=== PATIENT | male | born 1980 | race African-American/Black ===

== ENCOUNTER 2020-07-05 11:46 | Emergency (ER) | payer OTHER, SELFPAY ==
[2020-07-05] VITALS (17 sets, daily range): BP systolic 144–168; BP diastolic 76–102; PULSE 51–75; RESP 15–18; TEMP 35.9; O2SAT 98–100
--- NOTE | ~2020-07-05 | CT_ITS ---
EXAMINATION: CT brain wo con DATE: 07/05/2020 12:01 INDICATION: Headache. TECHNIQUE: Computed tomography (CT) of the head was performed without intravenous contrast. The mA wa s adjusted according to patient size. Iterative reconstruction technique was employed. The dose-lengt h product was 605.33 mGy-cm. COMPARISON: None FINDINGS: There is no intracranial hemorrhage, acute infarction, or abnormal intracranial mass lesion . The ventricles are normal in size. There is mild mucosal thickening in the paranasal sinuses. The m astoid air cells are normal. IMPRESSION: 1. Normal brain. Reviewed, dictated and finalized at location A. IMPRESSION: 1. Normal brain.
[2020-07-05 12:39] LABS: Basophils Absolute Auto 0.1 K/mm3 (0.0-0.1); Basophils Percent Auto 0.7 % (0.2-1.2); Eosinophils Absolute Auto 0.3 K/mm3 (0-0.3); Eosinophils Percent Auto 1.9 % (0-4.4); Hematocrit 41.5 % (42.0-52.0); Hemoglobin 13.6 g/dL (14.0-18.0); Immature Granulocyte Absolute 0.06 K/mm3 (0.00-0.031); Immature Granulocyte Percent A 0.4 % (0-0.5); Lymphocytes Absolute Auto 2.37 K/mm3 (0.9-3.2); Lymphocytes Percent Auto 17.4 % (18.3-44.2); Mean Corpuscular HGB Conc 32.8 g/dl (32-36); Mean Corpuscular Hemoglobin 28.3 pg (26-34); Mean Corpuscular Volume 86.5 fl (80-100); Mean Platelet Volume 11.1 fl (7.4-10.4); Monocytes Absolute Auto 1.4 K/mm3 (0.1-0.6); Neutrophils Absolute Auto 9.5 K/mm3 (1.3-6.7); Neutrophils Percent Auto 69.6 % (45.5-73.1); Platelet Count Result 301 k/mm3 (150-375); Red Cell Distribution Width 13.3 % (11.5-14.5); White Blood Count 13.6 K/mm3 (4.5-10.0)
--- NOTE | 2020-07-05 12:41 | ED.HA ---
HPI - Headache General Chief Complaint: Headache Stated Complaint: headhache Time Seen by Provider: 07/05/20 12:28 Source: patient History of Present Illness HPI Narrative: Patient is a 40 y/o male complaining of left sided headache that started approximately 2 hours ago. He rates his pain as 10/10 and describes it as a pressure. His pain was sudden onset. He took Tylenol and Imitrex, which did not help. He has history of migraine, but describes this headache as the worst headache he ever had. He has some nausea, but no vomiting. He denies any focal weakness or numbness. Related Data Home Medications Medication Instructions Recorded Confirmed sumatriptan succinate [Imitrex] mg PO 07/05/20 Allergies Allergy/AdvReac Type Severity Reaction Status Date / Time No Known Allergies Allergy Verified 07/05/20 11:52 Review of Systems Constitutional: Constitutional: Denies chills, Denies fever(s), Reports headache(s) and Denies weakness Eyes: Eyes: Denies blurry vision ENT: Reports headache(s) and Denies neck pain Cardiovascular: Cardiovascular: Denies chest pain and Denies dyspnea Respiratory: Respiratory: Denies cough and Denies dyspnea Gastrointestinal: Gastrointestinal: Denies abdominal pain, Denies diarrhea, Reports nausea and Denies vomiting Genitourinary: Genitourinary: Denies hematuria and Denies dysuria Musculoskeletal: Musculoskeletal: Denies back pain and Denies neck pain Neurologic: Reports headache(s) and Denies weakness Exam Const: General: no acute distress and well developed Orientation/consciousness: oriented to person, oriented to place, oriented to time and patient oriented x3 HENMT: Head: normocephalic Ears: external ears normal General nose exam: Normal external nose present Eyes: General: appearance normal, both eyes and all related structures Conjunctivae: conjunctivae normal Neck: Neck: normal visual inspection and full ROM Chest: Chest palpation & inspection: normal inspection of the chest and no tenderness Resp: Effort & Inspection: normal respiratory effort Auscultation: clear to auscultation bilaterally Cardio: Rate: bradycardic Rhythm: regular rhythm GI: GI Palp: No abdominal tenderness and Yes Soft to palpation Skin: General skin exam: normal color and turgor normal Neuro: General: oriented to person, oriented to place, oriented to time and patient oriented x3 Cranial nerves: Yes CN's II-XII intact bilaterally Cognition (Neuro): normal cognition Speech: normal speech Motor exam (neuro): 5/5 motor strength present throughout Sensory Exam: normal sensation Coordination: [id number] test normal and [id number] test normal Extrem: General: normal to inspection, full ROM and no pedal edema Psych: Appearance: grossly normal Mental Status: mental status grossly normal Affect: normal affect Course Reevaluation(s) Reevaluation #1: Rechecked. Patient feels better. Headache almost gone. Discussed with patient about LP to evaluate for other potential causes of headache. Offered patient LP. Patient declined to have LP. He is instructed to return if his symptoms worse. Date: 07/05/20 Time: 14:50 Vital Signs Vital signs: Vital Signs Temperature 35.9 C L 07/05/20 11:48 Pulse Rate 52 L 07/05/20 11:48 Respiratory Rate 18 07/05/20 11:48 Blood Pressure 153/98 H 07/05/20 11:48 Pulse Oximetry 100 07/05/20 11:48 Temperature 35.9 C L 07/05/20 11:48 Pulse Rate 75 07/05/20 15:15 Respiratory Rate 16 07/05/20 15:15 Blood Pressure 155/86 H 07/05/20 15:15 Pulse Oximetry 100 07/05/20 15:15 MDM - Headache Lab Data Result diagrams: 07/05/20 12:31 07/05/20 12:31 Labs: Lab Results 07/05/20 07/05/20 Range/Units 12:31 12:31 WBC 13.6 H (4.5-10.0) K/mm3 RBC 4.80 (4.6-6.20) M/mm3 Hgb 13.6 L (14.0-18.0) g/dL Hct 41.5 L (42.0-52.0) % MCV 86.5 (80-100) fl MCH 28.3 (26-34) pg MCHC 32.8 (32-36)
[2020-07-05] MEDS: METOCLOPRAMIDE HCL INJ 10 MG/2 ML VIAL IV PUSH (12:43)
[2020-07-05] MEDS: fentaNYL CITRATE INJ (*CRX) 100 MCG/2 ML VIAL 50 MCG IV PUSH (12:43)
[2020-07-05] MEDS: SODIUM CHLORIDE 0.9% IV 1,000 ML 999 ML IV CONT (12:43)
[2020-07-05] MEDS: diphenhydrAMINE HCl INJ 50 MG/ML VIAL IV PUSH (12:47)
[2020-07-05 12:51] LABS: Anion Gap 11 mmol/L (8-16); Blood Urea Nitrogen 13 mg/dL (9-20); Calcium 9.8 mg/dL (8.4-10.2); Carbon Dioxide 26 mmol/L (22-30); Chloride 105 mmol/L (98-107); Estimated CRCL calculation 106 ml/min; Estimated Glomerular Filt Rate > 60; Glucose 83 mg/dL (75-110); Potassium 3.8 mmol/L (3.4-5.0); Sodium 142 mmol/L (137-145)
[2020-07-05] MEDS: hydroCHLOROthiazide 25 MG TABLET PO (13:48)
[2020-07-05] MEDS: lisinopriL 20 MG TABLET PO (13:48)
[2020-07-05] MEDS: VALPROIC ACID INJ 500 MG in DEXTROSE 5% 100 ML 100 MG IVPB (13:58)
== END 2020-07-05 15:15 | disposition home or self-care (01) ==
PROVIDERS: Emergency Provider Emergency Medicine
DX: G43.909 Migraine, unspecified, not intractable, without status migrainosus (principal)
CPT/HCPCS: 36415; 70450; 80048; 85025; 96361; 96365; 96375; 99284; A9270; J1200; J2765; J3010; J7030

== ENCOUNTER 2021-01-01 12:17 | Emergency (ER) | payer OTHER, SELFPAY ==
[2021-01-01 12:33] VITALS: BP 125/74; PULSE 71; RESP 20; TEMP 36.8; O2SAT 99
--- NOTE | 2021-01-01 13:44 | ED.GENADULT ---
HPI - General Adult General Chief complaint: Back Pain/Injury Stated complaint: back pain Time Seen by Provider: 01/01/21 12:47 Source: patient Mode of arrival: ambulatory Limitations: no limitations History of Present Illness HPI narrative: Patient is a 40-year-old male who presents to emergency department for evaluation of low back pain that is been present since moving has been lifting lots of objects and now has increasing low back pain localized to the midline low back radiating down to the thighs patient denies similar occurrence in the past or other injury or trauma took 2 ibuprofen with minimal improvement Related Data Allergies Allergy/AdvReac Type Severity Reaction Status Date / Time No Known Allergies Allergy Verified 01/01/21 12:35 Review of Systems Review of Systems: All systems reviewed & are unremarkable except as noted in HPI and below PMFSH Social History Social History Gender identity (if verbalized by the patient): Male Exam Narrative: Exam Narrative: GENERAL: Well-appearing, well-nourished, and in no acute distress. HEAD: Normocephalic, atraumatic. EYES: PERRLA and EOMI. ENT: Nares clear, no rhinorrhea or epistaxis. Mucous membranes moist. CHEST: Clear to auscultation. No respiratory distress. No wheezes rales or rhonchi HEART: Regular rate and rhythm. No murmur heard. Normal peripheral pulses. ABDOMEN: Soft, nontender, nondistended EXTREMITIES: Normal range of motion. No edema. Tenderness across the lower lumbar region no deformities noted SKIN: Warm, dry, no rash. NEURO: No focal deficits. Alert and oriented x3. Cranial nerves II through XII grossly intact. Normal speech and gait PSYCH: Normal mood and affect. Course Course Emergency Course: Patient in the room no distress aware of case findings treatment plan and diagnosis agreeing to follow-up as instructed Vital Signs Vital signs: Vital Signs Temperature 98.2 F 01/01/21 12:33 Pulse Rate 71 01/01/21 12:33 Respiratory Rate 20 01/01/21 12:33 Blood Pressure 125/74 01/01/21 12:33 Pulse Oximetry 99 01/01/21 12:33 Temperature 98.2 F 01/01/21 12:33 Pulse Rate 71 01/01/21 12:33 Respiratory Rate 20 01/01/21 12:33 Blood Pressure 125/74 01/01/21 12:33 Pulse Oximetry 99 01/01/21 12:33 Medical Decision Making MDM Narrative Medical decision making narrative: Patients pain is positional in nature and localized to back without signs of cord compression or cauda equina based on neurological exam, skeletal exam and history. No fever or other significant factors to suggest osteomyelitis or spinal epidural abscess. No symptoms or signs to suggest pain is referred from abdominal or / cardiopulmonary sources. No pulsatile masses noted on exam. Patient ambulates with steady gait and is stable for outpatient management given case findings. Vital Signs Vital Signs: Vital Signs Temperature 98.2 F 01/01/21 12:33 Pulse Rate 71 01/01/21 12:33 Respiratory Rate 20 01/01/21 12:33 Blood Pressure 125/74 01/01/21 12:33 Pulse Oximetry 99 01/01/21 12:33 Temperature 98.2 F 01/01/21 12:33 Pulse Rate 71 01/01/21 12:33 Respiratory Rate 20 01/01/21 12:33 Blood Pressure 125/74 01/01/21 12:33 Pulse Oximetry 99 01/01/21 12:33 Discharge Plan Discharge Clinical Impression: Lumbar radiculopathy Patient Disposition: Home, Self-Care Condition: Stable Instructions: Antibiotic Form, Acute Low Back Pain (ED) Additional Instructions: Medications as needed and prescribed. Limit lifting and bending. You may apply heat or cold to the area as needed. Follow up with your doctor for further care in the next 7 days. Contact your doctor or return to the emergency department if you develop problems with bladder or bowel function, weakness or loss of feeling in one or both of your legs, or any other serious concerns. Prescriptions:
== END 2021-01-01 13:56 | disposition home or self-care (01) ==
PROVIDERS: Emergency Provider Emergency Medicine
DX: M54.16 Radiculopathy, lumbar region (principal)
CPT/HCPCS: 99283

== ENCOUNTER 2021-03-28 07:09 | Emergency (ER) | payer OTHER, SELFPAY ==
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
[2021-03-28 07:15] VITALS: BP 183/102; PULSE 98; RESP 18; TEMP 36.7; O2SAT 100
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
[2021-03-28] MEDS: KETOROLAC 30 MG/ML VIAL (*BKC) IM (07:35)
[2021-03-28 08:34] VITALS: BP 151/96; PULSE 87; RESP 18; O2SAT 99
== END 2021-03-28 08:35 | disposition home or self-care (01) ==
PROVIDERS: Emergency Provider Emergency Medicine
DX: S46.912A Strain of unspecified muscle, fascia and tendon at shoulder and upper arm level, left arm, initial encounter (principal)
CPT/HCPCS: 73030; 96372; 99284; J1100; J1885

== ENCOUNTER 2021-10-17 10:35 | Emergency (ER) | payer OTHER, SELFPAY ==
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
[2021-10-17 10:45] VITALS: BP 146/95; PULSE 88; RESP 16; TEMP 36.2; O2SAT 100
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
== END 2021-10-17 11:53 | disposition home or self-care (01) ==
PROVIDERS: Emergency Provider Emergency Medicine
DX: S46.912A Strain of unspecified muscle, fascia and tendon at shoulder and upper arm level, left arm, initial encounter (principal); V49.60XA Unspecified car occupant injured in collision with unspecified motor vehicles in traffic accident, initial encounter
CPT/HCPCS: 73030; 99283

== ENCOUNTER 2021-11-10 04:50 | Emergency (ER) | payer OTHER, SELFPAY ==
--- NOTE | ~2021-11-10 | CT_ITS ---
EXAMINATION: CTA brain carotid DATE: 11/10/2021 06:44 INDICATION: Headache TECHNIQUE: Computed tomographic angiography (CTA) of the head was performed without and with 100 mL O mnipaque-350 intravenous contrast. CTA of the neck was performed with intravenous contrast. The dose- length product was 1943.36 mGy-cm. Maximum intensity projection and volume rendered 3D-reconstruction s were created by the technologist on a separate workstation. Automated exposure control and iterativ e reconstruction technique were employed. COMPARISON: 07/05/2020 FINDINGS: HEAD CTA: There is no intracranial hemorrhage, acute infarction, or abnormal mass lesion. The ventric les are normal. There is no abnormal mass effect or midline shift. The florian-white matter differentiat ion is normal. The basal cisterns are patent. The orbits are normal. There is partial opacification o f the left maxillary sinus and ethmoidal air cells.. There is no significant stenosis of the basilar artery or posterior cerebral arteries. There is no si gnificant stenosis of the intracranial internal carotid arteries or the anterior or middle cerebral a rteries. The anterior communicating artery and posterior communicating arteries are normal. There is no aneurysm. NECK CTA: The thyroid gland is unremarkable. The submandibular and parotid glands are symmetric. Ther e is no lymphadenopathy. There are no masses identified. The airway is unremarkable. There is mild ce rvical spondylosis at C5-6.. The superior mediastinum is unremarkable. There is 0% stenosis of the proximal right internal carotid artery relative to normal distal artery l umen diameter (NASCET criteria). There is 0% stenosis of the proximal left internal carotid artery re lative to normal distal artery lumen diameter. IMPRESSION: 1. No acute intracranial abnormality. Normal head CTA. 2. 0% stenosis of the proximal right internal carotid artery relative to normal distal artery lumen d iameter (NASCET criteria). 3. 0% stenosis of the proximal left internal carotid artery relative to normal distal artery lumen di ameter. Reviewed, dictated and finalized at location A. CE SUPPORT IMPRESSION: 1. No acute intracranial abnormality. Normal head CTA. 2. 0% stenosis of the proximal right internal carotid artery relative to normal distal artery lumen diameter (NASCET criteria). 3. 0% stenosis of the proximal left internal carotid artery relative to normal distal artery lumen diameter.
--- NOTE | ~2021-11-10 | XR_ITS ---
EXAMINATION: XR lumbar spine 2-3V DATE: 11/10/2021 05:42 INDICATION: Low back pain TECHNIQUE: Anteroposterior and lateral views of the lumbar spine, and cone-down lateral view of the l umbosacral junction were obtained. COMPARISON: None. FINDINGS: There is grade 1 anterolisthesis of L5 on S1. The vertebral body heights are maintained. Mi ld loss of intervertebral disc space height is present at L5-S1. There is no fracture. Phleboliths ar e noted in the pelvis. IMPRESSION: 1. Grade 1 anterolisthesis of L5 on S1. Reviewed, dictated and finalized at location A. [facility]
[2021-11-10 04:55] VITALS: BP 148/94; PULSE 79; RESP 18; TEMP 36.6; O2SAT 100
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
[2021-11-10] MEDS: KETOROLAC 30 MG/ML VIAL (*BKC) IV PUSH (05:24)
[2021-11-10 07:13] VITALS: BP 137/89; PULSE 71; RESP 18; O2SAT 100
== END 2021-11-10 08:44 | disposition home or self-care (01) ==
PROVIDERS: Emergency Provider Emergency Medicine
DX: M54.42 Lumbago with sciatica, left side (principal); F07.81 Postconcussional syndrome; G44.309 Post-traumatic headache, unspecified, not intractable
CPT/HCPCS: 70496; 70498; 72100; 96374; 99284; J1885; Q9967

== ENCOUNTER 2022-02-21 17:21 | Emergency (ER) | payer OTHER, SELFPAY ==
--- NOTE | 2022-02-21 17:35 | ED.MALEGU ---
HPI - Male Genitourinary General Chief complaint: Urogenital-Male Stated complaint: uti Source: patient and RN notes reviewed Mode of arrival: ambulatory Limitations: no limitations History of Present Illness HPI Narrative: 41-year-old male presented for complaint of urinary frequency for about 2 days. He denies any penile discharge, dysuria, hematuria or change to urinary stream. He denies any concern for STD at this time. He endorses drinking a lot of soda and extra sweet tea. Denies nausea, vomiting, abdominal pain, fevers or chills. Related Data Allergies Allergy/AdvReac Type Severity Reaction Status Date / Time No Known Allergies Allergy Verified 02/21/22 17:34 Review of Systems Review of Systems: CONSTITUTIONAL: Denies body aches, fever, chills, or sweats. CARDIOVASCULAR: Denies chest pain, palpitations, or edema. RESPIRATORY: Denies cough or dyspnea. GASTROINTESTINAL: Denies abdominal pain, nausea, vomiting, or diarrhea. GENITOURINARY: Reports frequency, Denies urgency, hematuria, flank pain SKIN: Denies rash, itching, or wounds. MUSCULOSKELETAL: Denies back pain or myalgia. [facility] Past Medical History Medical History Brain cyst Migraines Social History Social History Gender identity (if verbalized by the patient): Male Comments At time of signature, I have reviewed and agree with nursing past medical, surgical, social and family history unless otherwise noted. Please see nursing chart for further information. There is no relevant family history pertinent to the presenting complaint Exam Narrative: GENERAL: Well-appearing CHEST: No respiratory distress. Clear to auscultation. HEART: Regular rate and rhythm. ABDOMEN: Soft, nontender, nondistended, normal active bowel sounds. No CVA tenderness MUSCULOSKELETAL: No bony tenderness. SKIN: Warm, dry, no rash. NEURO: No focal deficits. Alert and oriented x3. Gait steady. PSYCH: Normal affect. No signs of depression or anxiety. Course Course Emergency Course: Patient is aware of diagnosis, understands and agrees to treatment plan. Anticipatory guidance given. Patient agrees to follow-up as directed and is aware of reasons to seek care at the emergency department. Portions of this record may have been created with voice recognition software Level of Care: Express Care Visit Vital Signs Vital signs: Vital Signs Temperature 98.0 F 02/21/22 17:38 Pulse Rate 62 02/21/22 17:38 Respiratory Rate 16 02/21/22 17:38 Blood Pressure 146/92 H 02/21/22 17:38 Pulse Oximetry 100 02/21/22 17:38 Oxygen Delivery Room Air 02/21/22 17:38 Temperature 98.0 F 02/21/22 17:38 Pulse Rate 62 02/21/22 17:38 Respiratory Rate 16 02/21/22 17:38 Blood Pressure 146/92 H 02/21/22 17:38 Pulse Oximetry 100 02/21/22 17:38 Oxygen Delivery Room Air 02/21/22 17:38 Reviewed MDM - Male Genitourinary MDM Narrative Medical decision making narrative: Patient presenting with concern for UTI. Urine result neg, reviewed with pt. Urine specimen collected for GC, chlamydia, trich. Informed Pt will be contacted w/ results when they become available if they are positive. Discussed with patient that it takes up to 7 days for results of cultures to be released and explained that we may treat empirically at this time. Declines treatment at this time due to low concern for STD, and he will return should tests be positive. I have instructed the patient to return to the ER at any time if there are any new or worsening symptoms. The patient expressed understanding of and agreement with this plan. Differential Diagnosis Differential diagnosis: Likely urinary tract infection, urethritis, prostatitis and other Lab Data Labs: Urine Glucose Negative Reference Range: Negative
[2022-02-21 17:38] VITALS: BP 146/92; PULSE 62; RESP 16; TEMP 36.7; O2SAT 100
== END 2022-02-21 18:08 | disposition home or self-care (01) ==
PROVIDERS: Emergency Provider Nurse Practitioner Family
DX: R35.0 Frequency of micturition (principal); I10 Essential (primary) hypertension
CPT/HCPCS: 81003; 87491; 87591; 87661; 99213; G0463

== ENCOUNTER 2022-11-10 08:06 | Emergency (ER) | payer OTHER, SELFPAY ==
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
[2022-11-10 08:15] VITALS: BP 136/89; PULSE 77; RESP 12; TEMP 36.8; O2SAT 99
== END 2022-11-10 08:40 | disposition home or self-care (01) ==
PROVIDERS: Emergency Provider Nurse Practitioner
DX: J02.0 Streptococcal pharyngitis (principal); H65.02 Acute serous otitis media, left ear; G89.21 Chronic pain due to trauma; M54.50 Low back pain, unspecified
CPT/HCPCS: 87880; 99213; G0463

== ENCOUNTER 2023-05-16 07:43 | Emergency (ER) | payer OTHER, SELFPAY ==
[2023-05-16] VITALS (19 sets, daily range): BP systolic 128–148; BP diastolic 90–109; PULSE 52–63; RESP 14–19; O2SAT 95–100
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
[2023-05-16] MEDS: PROCHLORPERAZINE EDISYLATE 10 MG/2 ML VIAL IM (09:00)
[2023-05-16] MEDS: KETOROLAC 30 MG/ML VIAL (*BKC) 15 MG IM (09:00)
[2023-05-16] MEDS: diphenhydrAMINE HCL ELIXIR 12.5 MG/5 ML UDC 25 MG PO (09:00)
== END 2023-05-16 10:52 | disposition home or self-care (01) ==
PROVIDERS: Emergency Provider Student in an Organized Health Care Education/Training Program
DX: G43.909 Migraine, unspecified, not intractable, without status migrainosus (principal); M54.12 Radiculopathy, cervical region
CPT/HCPCS: 96372; 99284; A9270; J0780; J1885

== ENCOUNTER 2023-11-06 08:12 | Emergency (ER) | payer SELFPAY ==
[2023-11-06 08:27] VITALS: BP 154/83; PULSE 71; RESP 16; TEMP 36.7; O2SAT 100
[2023-11-06 08:42] LABS: Appearance Urine Clear (Clear); Bacteria Urine None Seen /hpf; Bilirubin Urine Negative (Negative); Blood Urine Negative (Negative); Color Urine Yellow (Yellow); Glucose Urine UA Negative (Negative); Ketones Urine Negative (Negative); Leukocyte Esterase Ur Negative LEU/UL (Negative); Nitrate Urine Negative (Negative); Non Pathogenic Casts 0-2; Protein Urine Trace mg/dL (Negative); RBC Urine 0-2 /hpf (0-2); Specific Grav Ur 1.021 (1.001-1.035); Squamous Epithelial Cell Urine None seen /hpf (Few); WBC Urine 0-5 /hpf
[2023-11-06 09:06] LABS: Add Urine Microscopic? YES
--- NOTE | 2023-11-06 09:08 | ED.GENADULT ---
HPI - General Adult General Chief complaint: Urogenital-Male Stated complaint: urinary c/o Time Seen by Provider: 11/06/23 08:46 History of Present Illness HPI narrative: Patient is a 43-year-old male who is concerned about a urinary tract infection. He has had malodorous urine for the last couple days. No burning urination. No drainage from the tip of the penis. No testicular pain. He has been a committed relationship for the last 8 years and does not feel he is at risk for STI. No fevers or chills or sweats. No chest pain or chest pressure. No additional concerns. Related Data Allergies Allergy/AdvReac Type Severity Reaction Status Date / Time No Known Allergies Allergy Verified 05/16/23 07:53 Review of Systems Constitutional: Constitutional: Reports no additional constitutional complaints Gastrointestinal: Gastrointestinal: Reports no additional gastrointestinal complaints Genitourinary: Genitourinary: Denies hematuria, Denies dysuria, Denies penile discharge, Denies testicular pain and Denies urinary frequency PMFSH Past Medical History Medical History Brain cyst Migraines Family History Family History (Updated 07/03/23 @ 10:50 by Radha Pierre COUNTS INCLUDE 234 BEDS AT THE [facility]) Father No problems noted. Mother No problems noted. Sibling No problems noted. Social History Social History Gender identity (if verbalized by the patient): Male Exam Narrative: GENERAL: Well-appearing, well-nourished, and in no acute distress. HEAD: Normocephalic, atraumatic. HEART: Regular rate and rhythm. Normal peripheral pulses.: Deferred. EXTREMITIES: Normal range of motion. No edema.. NEURO: Alert and oriented x3. PSYCH: Normal mood and affect. Course Course Emergency Course: No evidence of UTI or STI. Discharge home. Vital Signs Vital signs: Vital Signs Temperature 98.1 F 11/06/23 08:27 Pulse Rate 71 11/06/23 08:27 Respiratory Rate 16 11/06/23 08:27 Blood Pressure 154/83 H 11/06/23 08:27 Pulse Oximetry 100 11/06/23 08:27 Temperature 98.1 F 11/06/23 08:27 Pulse Rate 71 11/06/23 08:27 Respiratory Rate 16 11/06/23 08:27 Blood Pressure 154/83 H 11/06/23 08:27 Pulse Oximetry 100 11/06/23 08:27 Medical Decision Making Vital Signs Vital Signs: Vital Signs Temperature 98.1 F 11/06/23 08:27 Pulse Rate 71 11/06/23 08:27 Respiratory Rate 16 11/06/23 08:27 Blood Pressure 154/83 H 11/06/23 08:27 Pulse Oximetry 100 11/06/23 08:27 Temperature 98.1 F 11/06/23 08:27 Pulse Rate 71 11/06/23 08:27 Respiratory Rate 16 11/06/23 08:27 Blood Pressure 154/83 H 11/06/23 08:27 Pulse Oximetry 100 11/06/23 08:27 Lab Data Labs: Lab Results 11/06/23 Range/Units 08:31 Urine Color Yellow (Yellow) Urine Appearance Clear (Clear) Urine pH 7.0 (5.0-9.0) Ur Specific Gardner 1.021 (1.001-1.035) Urine Protein Trace (Negative) mg/dL Urine Glucose (UA) Negative (Negative) mg/dL Urine Ketones Negative (Negative) mg/dL Ur Blood (Man) Negative (Negative) Urine Nitrate Negative (Negative) Urine Bilirubin Negative (Negative) Urine Urobilinogen 1.0 (<2.0) mg/dL Leukocyte Esterase Rfl Negative (Negative) DAVON/UL Urine RBC 0-2 (0-2) /hpf Urine WBC 0-5 /hpf Ur Squamous Epith Cells None seen (Few) /hpf Urine Bacteria None seen /hpf Urine Casts 0-2 C. trachomatis (PCR) Not detected (NOT DETECTE) N. gonorrhoeae (PCR) Not detected (NOT DETECTE) Discharge Plan Discharge Clinical Impression: Urine discoloration Patient Disposition: Home, Self-Care Condition: Stable Additional Instructions: You had a normal urinalysis and no evidence of sexually transmitted infection. Follow-up with your primary care doctor if you have additional concerns. [employer]
[2023-11-06 10:46] LABS: Chlamydia trachomatis NOT DETECTED (NOT DETECTE); Neisseria gonorrhoeae PCR NOT DETECTED (NOT DETECTE)
== END 2023-11-06 11:09 | disposition home or self-care (01) ==
PROVIDERS: Emergency Provider Emergency Medicine
DX: R82.90 Unspecified abnormal findings in urine (principal)
CPT/HCPCS: 81001; 87491; 87591; 99283

== ENCOUNTER 2023-12-02 08:50 | Emergency (ER) | payer SELFPAY ==
--- NOTE | 2023-12-02 08:54 | ED.GENADULT ---
HPI - General Adult General Chief complaint: Urogenital-Male Stated complaint: STD Time Seen by Provider: 12/02/23 08:54 Source: patient, RN notes reviewed and old records reviewed Mode of arrival: ambulatory Limitations: no limitations History of Present Illness HPI narrative: 43-year-old male presents to [facility] for STI check. patient endorses that he was caught cheating on his significant other and wanted to be tested to prove he was clean. Patient denies any urogenital symptoms or complaints at this time. Related Data Home Medications Medication Instructions Recorded Confirmed No Home Medications 12/02/23 12/02/23 Allergies Allergy/AdvReac Type Severity Reaction Status Date / Time No Known Allergies Allergy Verified 12/02/23 09:03 Review of Systems Review of Systems: All systems reviewed & are unremarkable except as noted in HPI and below Constitutional: Constitutional: Reports no additional constitutional complaints Eyes: Eyes: Reports no additional eye complaints ENT: Reports system reviewed and no additional complaints, except as documented Cardiovascular: Cardiovascular: Reports no additional cardiovascular complaints, Denies chest pain and Denies dyspnea Respiratory: Respiratory: Reports no additional respiratory complaints, Denies cough and Denies dyspnea Genitourinary: Genitourinary: Reports as per HPI, Denies hematuria, Denies dysuria, Denies flank pain, Denies penile discharge, Denies urinary frequency, Denies urinary hesitancy and Denies urinary urgency Musculoskeletal: Musculoskeletal: Reports no additional musculoskeletal complaints Neurologic: Reports system reviewed and no additional complaints, except as documented Psychiatric: Psychiatric: Reports no additional psychiatric complaints PMFSH Past Medical History Medical History Brain cyst Migraines Family History Family History (Updated 07/03/23 @ 10:50 by Radha Pierre [facility]) Father No problems noted. Mother No problems noted. Sibling No problems noted. Social History Social History Gender identity (if verbalized by the patient): Male Comments At the time of my signature, I reviewed and agree with the nursing past medical, surgical, social, and family history. There is no relevant family history pertinent to the patient complaint. Exam Const: General: cooperative, healthy appearing, comfortable, no acute distress, alert and well nourished Nutritional Appearance: well nourished Orientation/consciousness: patient oriented x3 Limitations: no limitations HENMT: Head: normal to inspection Ears: external ears normal Face/Nose/Sinus: Normal external nose present, Normal nares present, normal facial exam, No erythema and No edema Face and sinus: normal facial exam, no erythema and no edema Eyes: General: appearance normal, both eyes and all related structures Neck: Neck: normal visual inspection, full ROM and no meningeal signs Lymphatic: no lymphadenopathy noted and no lymphedema noted Chest: Chest palpation & inspection: normal inspection of the chest Resp: Effort & Inspection: normal respiratory effort and able to speak in complete sentences Auscultation: clear to auscultation bilaterally Cardio: Jugular venous distension: no JVD Rate: regular rate Rhythm: regular rhythm Back/Spine/Pelvis: Cervical Spine: cervical ROM normal Skin: General skin exam: normal color, no rashes or lesions noted and turgor normal Neuro: General: patient oriented x3, gait normal, moves all extremities and no meningeal signs Speech: normal speech Gait exam (Neuro): Normal gait present Extrem: General: normal to inspection, full ROM and capillary refill normal Psych: Appearance: grossly normal and well kempt Course Course Emergency Course: Some parts of this dictation were generated by voice
[2023-12-02 09:01] VITALS: BP 132/81; PULSE 80; RESP 14; TEMP 37; O2SAT 100
[2023-12-02 20:36] LABS: Trichomonas Vag PCR NOT DETECTED (NOT DETECTE)
[2023-12-02 20:57] LABS: Chlamydia trachomatis NOT DETECTED (NOT DETECTE); Neisseria gonorrhoeae PCR NOT DETECTED (NOT DETECTE)
== END 2023-12-02 09:14 | disposition home or self-care (01) ==
PROVIDERS: Emergency Provider Nurse Practitioner Family
DX: A64 Unspecified sexually transmitted disease (principal)
CPT/HCPCS: 87491; 87591; 87661; 99213; G0463

== ENCOUNTER 2025-03-18 18:37 | Emergency (ER) | payer SELFPAY ==
--- NOTE | ~2025-03-18 | XR_ITS ---
CHEST RADIOGRAPH CLINICAL HISTORY: neuro deficit work up . COMPARISON: None available TECHNIQUE: Single portable view of the chest. FINDINGS The cardiomediastinal silhouette is unremarkable. The lungs are clear. IMPRESSION: No focal infiltrate or effusion. Reviewed, dictated and finalized at location A.
--- NOTE | ~2025-03-18 | CT_ITS ---
CTA brain carotid Ordering provider: Pamella Soto MD History: . AYALA, R arm paresthesias . Comparison: 11/10/2021 Technique: CT angiogram head and neck was performed following timed intravenous injection of contrast . Thin slice axial images and reformatted coronal images were obtained. Three dimensional reformatted images of the brain were also obtained using a [employer] workstation. DLP: 1912 mGy-cm FINDINGS: HEAD: --ANTERIOR AND MIDDLE CEREBRAL ARTERIES AND BRANCHES: Normal caliber and contour. --INTERNAL CAROTID ARTERIES: Normal caliber and contour. --BASILAR ARTERY AND BRANCHES: Normal caliber and contour. No atheromatous disease. --POSTERIOR CEREBRAL ARTERIES: Normal caliber and contour --POSTERIOR COMMUNICATING ARTERIES: Not well visualized likely related to congenital absence or small size. --ANEURYSM: None visualized. --BRAIN: The ventricles are normal in size, shape and position. There is no mass, mass effect or midline shift. There is no abnormal extra-axial fluid collection or intracranial hemorrhage. Opacification of the right ethmoid sinus. Congenital absence of the frontal sinus. Remaining paranasal sinuses are clear. The mastoid air cells are well aerated. No acute displaced fractures within the overlying cranium. NECK: --RIGHT CERVICAL CAROTID SYSTEM: Normal caliber and contour. Percent stenosis per NASCET criteria is 0% No carotid dissection. No stenosis of the cervical carotid system. --LEFT CERVICAL CAROTID SYSTEM: Normal caliber and contour. Percent stenosis per NASCET criteria is 0% No carotid dissection. No stenosis of the cervical carotid system. --VERTEBRAL ARTERIES: Normal caliber and contour. --VISUALIZED AORTIC ARCH AND BRANCHING VESSELS: Normal caliber and contour. No significant atheromato us disease. --SOFT TISSUES: Unremarkable. --CERVICAL SPINE: Straightening and slight reversal of the normal curvature of the cervical spine is present. Degenerative disease is noted, with osteophyte formation and endplate changes. AT THE LEVEL OF C6/C7: is a right paracentral disc protrusion with mass effect on both the spinal can al and right neuroforamen, which may account for patient's presentation, for which clinical correlati on is needed. The anterior posterior dimension of the spinal canal at this level is 9.2 mm. IMPRESSION: Percent stenosis per NASCET criteria is 0% bilaterally. No intracranial or carotid abnormality is appreciated. Right paracentral disc protrusion at the level of C6/C7 with trace mass effect on the spinal canal an d more significant mass effect on the right neural foramen at this level. Reviewed, dictated and finalized at location A. IMPRESSION: Percent stenosis per NASCET criteria is 0% bilaterally. No intracranial or carotid abnormality is appreciated. Right paracentral disc protrusion at the level of C6/C7 with trace mass effect on the spinal canal and more significant mass effect on the right neural forame n at this level.
[2025-03-18 18:38] VITALS: BP 135/87; PULSE 64; RESP 16; TEMP 36.6; O2SAT 100
--- NOTE | 2025-03-18 19:57 | ED_ITS ---
HPI - Headache General Chief Complaint: Headache Stated Complaint: headaches Time Seen by Provider: 03/18/25 19:40 Source: patient Mode of arrival: ambulatory Limitations: no limitations History of Present Illness HPI Narrative: [id number] Patient presents with report of left sided headache of 1 week's duration as well right-sided neck pain and right arm paresthesias throughout right arm as digits 1 2 and 3 on the right. Symptoms been intermittent. He denies any visual changes such as blurred or double vision or visual curtain-like defect. No history of diabetes mellitus. No slurred speech or facial drooping. Thought he slept on it from has been using icy Hot. No trauma or anticoagulation. No fevers. The patient is having pain in his neck he is able to move fully. His headache is associated with photophobia and phonophobia. He denies any eye pain. Lives alone but no one else around him with similar symptoms. He was trialing Aleve and stanbac BC at home. Patient states he has a history of headaches. Related Data Allergies Allergy/AdvReac Type Severity Reaction Status Date / Time No Known Allergies Allergy Verified 12/02/23 09:03 [facility] Past Medical History Medical History Right hand dominant Brain cyst Migraines Family History Family History (Updated 07/03/23 @ 10:50 by Radha Pierre [facility]) Father No problems noted. Mother No problems noted. Sibling No problems noted. Social History Social History Living arrangements: alone Occupation/Education: occupation Additional occupation/education comments: employed Gender identity (if verbalized by the patient): Male Exam 2 Narrative: GENERAL: Well-appearing, well-nourished, and in no acute distress. HEAD: Normocephalic, atraumatic. EYES: Non injected, non icteric. No nystagmus. ENT: Nares clear, no rhinorrhea or epistaxis. Gross auditory acuity intact. NECK: Supple. No meningismus. CHEST: Speaking in full sentences. No respiratory distress. HEART: Regular rate and rhythm. . ABDOMEN: Soft, nondistended. No rigidity or guarding. Not peritoneal EXTREMITIES: Normal range of motion. No lower extremity edema. SKIN: Warm, dry, no rash. NEURO: No focal deficits. Alert and oriented. Answering questions. Following commands. Normal speech without aphasia or dysarthria. No ataxia on [id number]. No extinction. No motor drift x4. No facial asymmetry/loss of nasolabial fold. PSYCH: Normal mood and affect. Course Vital Signs Vital signs: Vital Signs Temperature 97.9 F 03/18/25 18:38 Pulse Rate 64 03/18/25 18:38 Respiratory Rate 16 03/18/25 18:38 Blood Pressure 135/87 03/18/25 18:38 Pulse Oximetry 100 03/18/25 18:38 Oxygen Delivery Room Air 03/18/25 18:38 Temperature 98.3 F 03/18/25 23:37 Pulse Rate 56 L 03/18/25 23:37 Respiratory Rate 16 03/18/25 23:37 Blood Pressure 134/86 03/18/25 23:37 Pulse Oximetry 100 03/18/25 23:37 Oxygen Delivery Room Air 03/18/25 18:38 MDM - Headache MDM Narrative Medical decision making narrative: This is a 44 year old male who presents to the emergency department with concern for left sided headache and right arm paresthesias. Symptoms have been occurring for 1 week. The patient is protecting their airway which is patent. An IV is established by nursing staff blood work sent to the lab for evaluation. An EKG will be performed. NIHSS was evaluated per below. No stroke activation given duration of symptoms. NIHSS Level Of consciousness:0 Month and age:0 Follows commands:0 Gaze palsy:0 Visual fong:0 Facial palsy:0 Left arm motor drift:0 Right arm motor drift:0 Left leg motor drift:0 Right leg motor drift:0 Limb ataxia:0 Sensation:0 Aphasia:0 Dysarthria:0 Extinction:0 Total: 0 The extensive neurological examination is non-focal, vital signs are stable (afebrile and WNL), and the patient is non-toxic appearing. DIFFERENTIAL DIAGNOSES Considered Stroke (CVA / TIA) and mimics including but not limited to: migraines, hypoglycemia, seizures/Alex's paralysis, sepsis/severe infections in patients with prior strokes (e.g. recrudescence), syncope, brain masses, transient global amnesia, panic attack/hyperventilation, and conversion disorders. Considered carpal tunnel syndrome/median nerve neuropathy for patient's paresthesias given their distribution. Also cervical radiculopathy. The Ddx for the patient's headache is tension headache, migraine, or other headache of non-emergent etiology. Unlikely SAH: headache is non-thunderclap. Headache is similar to headaches in the past. Unlikely subdural/epidural hematoma: no history of trauma, no anticoagulation Unlikely meningitis: afebrile, no meningismus, mild photophobia Unlikely temporal arteritis: pt <60 years old. Unlikely acute angle glaucoma: PERRL, no eye pain Unlikely carbon monoxide poisoning: no others with similar symptoms Patient has comorbidities that complexity management. Namely, Per chart review of the EMR, patient has a history of migraine as well as brain cyst. CT as below. Labs including troponin reassuring. The patient's headache was treated symptomatically with IV fluids, ketorolac, benadryl, compazine. Patient reassessed at 10:55 p.m. he notes his headache has improved and he is feeling much better. We discussed the findings of his CT C-spine. Will give 1 time dose of dexamethasone as this has been shown to reduce the occurrence of bounce-back/rebound headache. Will provide a work note for tomorrow as he was supposed to work. He will be discharged with strict return precautions and instructions to follow up with PCP. Because he does not have 1, a referral is given. Discharged with prescriptions for [id number] analgesics medications. Lab Data Attestation: I reviewed the patient's lab results. 03/18/25 20:15 03/18/25 20:15 Labs: Lab Results 03/18/25 03/18/25 Range/Units 20:15 20:28 WBC 7.9 (4.5-10.0) K/mm3 RBC 5.05 (4.6-6.20) M/mm3 Hgb 14.0 (14.0-18.0) g/dL Hct 43.1 (42.0-52.0) % MCV 85.3 (80-100) fl MCH 27.7 (26-34) pg MCHC 32.5 (32-36) g/dl RDW 13.1 (11.5-14.5) % Plt Count 315 (150-375) k/mm3 MPV 10.3 (7.4-10.4) fl Immature Gran % (Auto) 0.1 (0-0.5) % Neut % (Auto) 46.1 (45.5-73.1) % Lymph % (Auto) 41.6 (18.3-44.2) % [place] % (Auto) 8.7 H (2.6-8.5) % Eos % (Auto) 2.5 (0-4.4) % Baso % (Auto) 1.0 (0.2-1.2) % Lymph # (Auto) 3.27 H (0.9-3.2) K/mm3 [place] # (Auto) 0.7 H (0.1-0.6) K/mm3 Eos # (Auto) 0.2 (0-0.3) K/mm3 Baso # (Auto) 0.1 (0.0-0.1) K/mm3 Abs Immat Gran (auto) 0.01 (0.00-0.031) K/mm3 Absolute Neuts (auto) 3.6 (1.3-6.7) K/mm3 Absolute Nucleated RBC 0.000 (0.0-0.012) K/mm3 Nucleated RBC % 0.0 (0.0-0.2) % PT 13.8 (11.1-14.7) Seconds INR 1.1 APTT 34.3 (22.3-36.8) Seconds Sodium 139 (137-145) mmol/L Potassium 4.1 (3.4-5.0) mmol/L Chloride 107 (98-107) mmol/L Carbon Dioxide 20 L (22-30) mmol/L Anion Gap 12 (4-12) mmol/L BUN 15 (9-20) mg/dL Creatinine 0.92 (0.7-1.3) mg/dL Estim Creat Clear Calc 110 ml/min Estimated GFR > 60 (59 - ) Glucose 84 (65-110) mg/dL Calcium 9.6 (8.4-10.2) mg/dL Total Bilirubin 0.5 (0.2-1.3) mg/dL AST 37 (17-59) U/L ALT 35 (6-50) U/L Alkaline Phosphatase 63 (38-126) U/L Troponin I < 0.012 (0.000-0.034) ng/mL Total Protein 8.5 H (6.3-8.2) g/dL Albumin 4.8 (3.5-5.1) g/dL Urine Color Yellow (Yellow) Urine Appearance Clear (Clear) Urine pH 5.5 (5.0-9.0) Ur Specific [place] 1.024 (1.001-1.035) Urine Protein Negative (Negative) mg/dL Urine Glucose (UA) Negative (Negative) mg/dL Urine Ketones Negative (Negative) mg/dL Ur Blood (Man) Negative (Negative) Urine Nitrate Negative (Negative) Urine Bilirubin Negative (Negative) Urine Urobilinogen 1.0 (<2.0) mg/dL Leukocyte Esterase Rfl Negative (Negative) DAVON/UL Urine Opiates Screen Negative (Negative) Urine Methadone Screen Negative (Negative) Ur Barbiturates Screen Negative (Negative) Ur Phencyclidine Scrn Negative (Negative) Ur Amphetamine Screen Negative (Negative) U Benzodiazepines Scrn Negative (Negative) Urine Cocaine Screen Negative (Negative) U Cannabinoids Screen Positive A (Negative) Ethyl Alcohol < 10 (<10) mg/dL Imaging Data Radiologist's impression: Impressions Chest X-Ray 03/18/25 20:57 IMPRESSION: No focal infiltrate or effusion. Head/Neck CTA 03/18/25 21:35 IMPRESSION: Percent stenosis per NASCET criteria is 0% bilaterally. No intracranial or carotid abnormality is appreciated. Right paracentral disc protrusion at the level of C6/C7 with trace mass effect on the spinal canal and more significant mass effect on the right neural foramen at this level. ECG Data EKG #1: Attestation: I personally reviewed and interpreted this ECG as follows: ECG completion date: 03/18/25 ECG completion time: 20:30 Prior ECG tracings: not available for review (No prior for comparison) Interpretation: Sinus bradycardia rate of 56 beats per minute. [place] interval 176. QRS 94. QT/QTC 402/390. Good R-wave progression across the precordial leads. No T-wave inversions. There is widespread concave ST elevation/slurring, most prominent in precordial leads V4 through V5 and limb leads I, II. T waves are prominent slightly asymmetrical and concordant with the QRS complex. These findings, especially in an otherwise healthy patient of age less than 50 years old suggest benign early repolarization, usually benign ECG pattern Dairy Processing Equipment Operator interprets as Benign early repolarization as well Discharge Plan Discharge Clinical Impression: Arm paresthesia, right, Left-sided headache, Marijuana use, Protrusion of cervical intervertebral disc Patient Disposition: Home Condition: Stable Instructions: Antibiotic Form, Migraine Headache (ED), Paresthesia (ED), Cervical Radiculopathy (ED), General Headache (ED) Additional Instructions: As we discussed, your CT showed Right paracentral disc protrusion at the level of C6/C7 with trace mass effect on the spinal canal and more significant mass effect on the right neural foramen at this level. For this and for your headaches, follow-up with primary care. Because you do not have a primary care physician, the name of the doctors listed below. Return to the emergency department any new or worsening symptoms. Acetaminophen/Tylenol (maximum 4000 mg per day) is safe to take with NSAIDs (ibuprofen/Motrin) for pain relief. Patient Language: Eritrean Prescriptions: New ibuprofen 600 mg tablet 600 mg PO TID PRN (Reason: pain) Qty: 30 0RF acetaminophen 500 mg capsule 1,000 mg PO Q6H PRN (Reason: pain) Qty: 30 0RF Follow-up/Referrals: Jacky Holder MD [Physician] - PHYSICIAN,BANKING REPRESENTATIVE [Primary Care Provider] - Stand Alone Forms: Work/School Release IP Time of Disposition: 23:01
--- NOTE | 2025-03-18 20:05 | ECG_ITS ---
Test Date: 2025-03-18 20:30:04 Measurements Intervals Driver Rate: 56 P: 66 NH: 176 QRS: 49 QRSD: 94 T: 41 QT: 402 QTc: 390 Interpretive Statements SINUS BRADYCARDIA ST ELEVATION IN ANTEROLAT/HIGH LAT LEADS, PROBABLY EARLY REPOLARIZATION BASELINE ARTIFACT- I, II, III, AVR, AVL, AVF BORDERLINE ECG No previous ECG available for comparison Electronically Signed On 03-18-2025 20:31:42 CDT by Aamir Gomez D.O.
[2025-03-18 20:23] LABS: Basophils Absolute Auto 0.1 K/mm3 (0.0-0.1); Eosinophils Absolute Auto 0.2 K/mm3 (0-0.3); Eosinophils Percent Auto 2.5 % (0-4.4); Hematocrit 43.1 % (42.0-52.0); Immature Granulocyte Absolute 0.01 K/mm3 (0.00-0.031); Immature Granulocyte Percent A 0.1 % (0-0.5); Lymphocytes Absolute Auto 3.27 K/mm3 (0.9-3.2); Lymphocytes Percent Auto 41.6 % (18.3-44.2); Mean Corpuscular HGB Conc 32.5 g/dl (32-36); Mean Corpuscular Hemoglobin 27.7 pg (26-34); Mean Corpuscular Volume 85.3 fl (80-100); Mean Platelet Volume 10.3 fl (7.4-10.4); Monocytes Absolute Auto 0.7 K/mm3 (0.1-0.6); Monocytes Percent Auto 8.7 % (2.6-8.5); Neutrophils Absolute Auto 3.6 K/mm3 (1.3-6.7); Neutrophils Percent Auto 46.1 % (45.5-73.1); Platelet Count Result 315 k/mm3 (150-375); Red Blood Count 5.05 M/mm3 (4.6-6.20); Red Cell Distribution Width 13.1 % (11.5-14.5); White Blood Count 7.9 K/mm3 (4.5-10.0)
[2025-03-18 20:32] LABS: Ethanol < 10 mg/dL (<10)
[2025-03-18 20:36] LABS: Alanine Aminotransferase 35 U/L (6-50); Albumin Level 4.8 g/dL (3.5-5.1); Alkaline Phosphatase 63 U/L (38-126); Anion Gap 12 mmol/L (4-12); Aspartate Amino Transferase 37 U/L (17-59); Bilirubin,Total 0.5 mg/dL (0.2-1.3); Blood Urea Nitrogen 15 mg/dL (9-20); Calcium 9.6 mg/dL (8.4-10.2); Carbon Dioxide 20 mmol/L (22-30); Chloride 107 mmol/L (98-107); Estimated CRCL calculation 110 ml/min; Estimated Glomerular Filt Rate > 60; Glucose 84 mg/dL (65-110); Potassium 4.1 mmol/L (3.4-5.0); Sodium 139 mmol/L (137-145); Total Protein 8.5 g/dL (6.3-8.2)
[2025-03-18 20:37] LABS: INR 1.1; Prothrombin Time 13.8 Seconds (11.1-14.7)
[2025-03-18 20:37] LABS: Add Urine Microscopic? NO; Appearance Urine Clear (Clear); Bilirubin Urine Negative (Negative); Blood Urine Negative (Negative); Color Urine Yellow (Yellow); Glucose Urine UA Negative (Negative); Ketones Urine Negative (Negative); Leukocyte Esterase Ur Negative LEU/UL (Negative); Nitrate Urine Negative (Negative); Protein Urine Negative (Negative); Specific Grav Ur 1.024 (1.001-1.035); pH Urine 5.5 (5.0-9.0)
[2025-03-18 20:38] LABS: Partial Thromboplastin Time 34.3 Seconds (22.3-36.8)
[2025-03-18 20:48] LABS: Troponin I < 0.012 ng/mL (0.000-0.034)
[2025-03-18 20:56] LABS: Amphetamine Screen Urine Negative (Negative); Barbiturate Screen Urine Negative (Negative); Benzodiazepines Screen Urine Negative (Negative); Cannabinoid Screen Urine Positive (Negative); Cocaine Screen Urine Negative (Negative); Methadone Screen Urine Negative (Negative); Opiate Screen Urine Negative (Negative); Phencyclidine Screen Urine Negative (Negative)
[2025-03-18] MEDS: SODIUM CHLORIDE 0.9% IV 1,000 ML 999 ML IV CONT (22:20)
[2025-03-18] MEDS: KETOROLAC 15 MG/ML VIAL (*BKC) IV PUSH (22:21)
[2025-03-18] MEDS: diphenhydrAMINE HCl INJ 50 MG/ML VIAL 25 MG IV PUSH (22:23)
[2025-03-18] MEDS: ACETAMINOPHEN 500 MG TABLET 1000 MG PO (22:23)
[2025-03-18] MEDS: PROCHLORPERAZINE EDISYLATE 10 MG/2 ML VIAL IV PUSH (22:24)
[2025-03-18] MEDS: dexAMETHasone SOD PHOS INJ 10 MG/ML 1 ML VIAL IV PUSH (23:25)
[2025-03-18 23:37] VITALS: BP 134/86; PULSE 56; RESP 16; TEMP 36.8; O2SAT 100
== END 2025-03-18 23:40 | disposition home or self-care (01) ==
PROVIDERS: Emergency Provider Student in an Organized Health Care Education/Training Program
DX: R51.9 Headache, unspecified (principal); R20.2 Paresthesia of skin; M50.223 Other cervical disc displacement at C6-C7 level; F12.90 Cannabis use, unspecified, uncomplicated; R00.1 Bradycardia, unspecified; R94.31 Abnormal electrocardiogram [ECG] [EKG]
CPT/HCPCS: 36415; 70496; 70498; 71045; 80053; 80307; 81003; 82077; 84484; 85025; 85610; 85730; 93005; 96361; 96374; 96375; 99284; A9270; J0780; J1100; J1200; J1885; J7030; Q9967

== ENCOUNTER 2025-03-31 10:31 | Emergency (ER) | payer SELFPAY ==
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
[2025-03-31 10:38] VITALS: BP 136/96; PULSE 99; RESP 20; TEMP 36.7; O2SAT 98
--- OUTSIDE RECORDS SUMMARY | 2025-03-31 10:38 | XMS_ITS | Clinical Summary ---
Author Organization [facility] [address] Address [address] [place] [address] Care Team Providers Care Completion Supervisor Name Role Phone Anton Wright MD Primary Care Provider [phone] Allergies No known active allergies Encounters Date Type Department Care Team Description 03/10/2025 6:23 PM CDT - 03/10/2025 7:00 PM CDT Emergency [facility] Emergency Department [address] [place] [address] Nonintractable headache, unspecified chronicity pattern, unspecified headache type (Primary Dx) Discharge Disposition: Discharge to home or self care from Last 3 Months Social History Tobacco Use Types Packs/Day Years Used Date Smoking Tobacco: Never Assessed Personal Safety Answer Date Recorded Have you ever been in or are you currently in a harmful physical or emotional relationship or is someone making you feel afraid or unsafe? 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 Gender Identity Not on file Sexual Orientation Not on file Obstetrics History Last Filed Vital Signs Vital Sign Reading Time Taken Comments Blood Pressure 134/89 03/10/2025 6:54 PM CDT Pulse 57 03/10/2025 6:54 PM CDT Temperature 37.1 C (98.7 F) 03/10/2025 5:57 PM CDT Respiratory Rate 20 03/10/2025 6:54 PM CDT Oxygen Saturation 100% 03/10/2025 6:54 PM CDT Inhaled Oxygen Concentration - - Weight 89.3 kg (196 lb 13.9 oz) 03/10/2025 5:57 PM CDT Height 190.5 cm (6' 3) 05/01/2021 11:0 9 AM CDT Body Mass Index 24.61 05/01/2021 11:09 AM CDT Plan of Treatment Health Maintenance Due Date Last Done Comments Depression Screening 1982 Hepatitis C Screening 1982 Prostate Cancer Screening-PSA 1982 DTaP/Tdap/Td Vaccine (5 - Tdap) 1993 01/21/1987, 02/16/1986, 02/09/1983, Additional history exists Varicella Vaccines (1 of 2 - 13+ 2-dose series) 1995 Hepatitis B Screening 2000 Regular Well Visit/Exam 18-64 2000 Covid-19 Vaccine ( season) 2024 05/16/2021, 04/25/2021 Influenza Vaccine (Season Ended) 2025 HPV Vaccines Aged Out No longer eligi ble based on patient's age to complete this topic Pneumococcal vaccine <65 Aged Out No longer eligible based on patient's age to complete this topic Insurance [facility] CHOICE PL[facility] Care Teams Completion Supervisor Relationship Specialty Start Date End Date Anton Wright MD PCP - General Family Practice 04/20/21
--- OUTSIDE RECORDS SUMMARY | 2025-03-31 10:38 | XMS_ITS | Referral Summary ---
Author Organization [facility] [address] [facility] Address [address] [place] [address] Care Team Providers Care Bung Driver Name Role Phone Anton Wright MD Primary Care Provider [phone] Encounters Date Type Department Care Team Description 03/10/2025 6:23 PM CDT - 03/10/2025 7:00 PM CDT Emergency [facility] Emergency Department [address] [place] [address] Nonintractable headache, unspecified chronicity pattern, unspecified headache type (Primary Dx) Discharge Disposition: Discharge to home or self care from Last 3 Months Allergies No known active allergies Social History Tobacco Use Types Packs/Day Years Used Date Smoking Tobacco: Never Assessed Personal Safety Answer Date Recorded Have you ever been in or are you currently in a harmful physical or emotional relationship or is someone making you feel afraid or unsafe? 

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
--- OUTSIDE RECORDS SUMMARY | 2025-03-31 11:16 | XMS_ITS | Clinical Summary ---
Author Organization [facility] Address [address] [place] [address] Care Team Providers Care Drying Oven Tender Name Role Phone Unavailable Primary Care Provider Unavailabl e Source Comments [facility],non-owned Affiliates and Associated Physician Practices is amultiple site organization consisting of ambulatory clinics and hospital sitesin [place], [place], [place] and [place]. This disclosure is being madepursuant to the Care Everywhere program and may not contain all information available regarding this patient. Last updated 18.[facility] Allergies No known active allergies Medications * [...] Name:Abbie Bell Payer ID:[id number] (NAIC) Type:HMO Address: [place] [id number] [employer] THIRD CONSTITUTION PARTY LIABILITY Constitution Party Liability [employer] [place] [id number] [employer] Member Subscriber Plan / Payer (Ef fective 2020-Present) Name:Ray Abbie Sang Relation to Subscriber:Self Name:ABBIE BELL Sang Payer ID:[id number] (NAIC) Type:HMO Address: [address] [facility] Member Subscriber Plan / Payer ( fective 2020-) Name:Ray Abbie Sang Relation to Subscriber:Self Name:RAYABBIE Sang Payer ID:[id number] (NAIC) Type:HMO Address: [address] [facility] Member Subscriber Plan / Payer ( fective 2020-) Name:Ray Abbie Sang Relation to Subscriber:Self Name:RAYABBIE Sang Payer ID:[id number] (NAIC) Type:HMO Address: [address] [facility] Member Subscriber Plan / Payer ( fective 2020-) Name:Ray Abbie Sang Relation to Subscriber:Self Name:RAYABBIE Sang Payer ID:[id number] (NAIC) Type:HMO Address: [address] [facility] Member Subscriber Plan / Payer ( fective 2020-) Name:Abbie Bell Relation to Subscriber:Self Name:RAYABBIE Sang Payer ID:[id number] (NAIC) Type:HMO Address: [address] [facility] Member Subscriber Plan / Payer (Ef fective 2020-) Name:Abbie Bell Relation to Subscriber:Self Name:RAYABBIE Sang Payer ID:[id number] (NAIC) Type:HMO Address: [address] [facility] Member Subscriber Plan / Payer (Ef fective 2020-) Name:Abbie Bell Relation to Subscriber:Self Name:ABBIE BELL Payer ID:[id number] (NAIC) Type:HMO Address: [address] CARE Member Subscriber Plan / Payer (Ef fective 2020-) Name:Abbie Bell Relation to Subscriber:Self Name:RAYABBIE Sang Payer ID:[id number] (NAIC) Type:HMO Address: [address] CARE Member Subscriber Plan / Payer (Ef fective 2020-) Name:Abbie Bell Relation to Subscriber:Self Name:ABBIE BELL Payer ID:[id number] (NAIC) Type:HMO Address: [address] [facility] Member Subscriber Plan / Payer (Ef fective 2020-) Name:Abbie Bell Relation to Subscriber:Self Name:ABBIE BELL Payer ID:[id number] (NAIC) Type:HMO Address: [address] [facility] Member Subscriber Plan / Payer (Ef fective 2020-) Name:Abbie Bell Relation to Subscriber:Self Name:ABBIE BELL Payer ID:[id number] (NAIC) Type:O Address: [address] [facility] Member Subscriber Plan / Payer (Ef fective 2020-) Name:Abbie Bell Relation to Subscriber:Self Name:ABBIE BELL Payer ID:[id number] (NAIC) Type:O Address: [address] [facility] Member Subscriber Plan / Payer (Ef fective 2020-) Name:Abbie Bell Relation to Subscriber:Self Name:ABBIE BELL Payer ID:[id number] (NAIC) Type:O Address: [address] [facility] Member Subscriber Plan / Payer (Ef fective 2020-) Name:Abbie Bell Relation to Subscriber:Self Name:ABBIE BELL Payer ID:[id number] (NAIC) Type:O Address: [address] [facility] Member Subscriber Plan / Payer (Ef fective 2020-) Name:Abbie Bell Relation to Subscriber:Self Name:ABBIE BELL Payer ID:[id number] (NAIC) Type:HMO Address: [address] [facility] Member Subscriber Plan / Payer (Ef fective 2020-Present) Name:Abbie Bell Relation to Subscriber:Self Name:ABBIE BELL Payer ID:[id number] (NAIC) Type:HMO Address: [address] [facility] Member Subscriber Plan / Payer (Ef fective 2020-Present) Name:Abbie Bell Relation to Subscriber:Self Name:ABBIE BELL Payer ID:[id number] (NAIC) Type:HMO Address: [address] [facility] Member Subscriber Plan / Payer (Ef fective 2020-Present) Name:Abbie Bell Relation to Subscriber:Self Name:ABBIE BELL Payer ID:[id number] (NAIC) Type:HMO Address: [address] [facility] Member Subscriber Plan / Payer (Ef fective 2020-Present) Name:Abbie Bell Relation to Subscriber:Self Name:ABBIE BELL Payer ID:[id number] (NAIC) Type:HMO Address: [address] [facility] Member Subscriber Plan / Payer (Ef fective 2020-Present) Name:Abbie Bell Relation to Subscriber:Self Name:RAYABBIE Sang Payer ID:[id number] (NAIC) Type:HMO Address: [address] [facility] Member Subscriber Plan / Payer (Ef fective 2020-Present) Name:Abbie Bell Relation to Subscriber:Self Name:ABBIE BELL Payer ID:[id number] (NAIC) Type:HMO Address: [address] [facility] Member Subscriber Plan / Payer (Ef fective 2020-Present) Name:Abbie Bell Relation to Subscriber:Self Name:ABBIE BELL Payer ID:[id number] (NAIC) Type:HMO Address: [address] [facility] Member Subscriber Plan / Payer (Ef fective 2020-Present) Name:Abbie Bell Relation to Subscriber:Self Name:ABBIE BELL Payer ID:[id number] (NAIC) Type:HMO Address: [address] [facility] [employer] Member Subscriber Plan / Payer (Ef fective 2020-Present) Name:Ray Abbie Sang Relation to Subscriber:Self Name:ABBIE BELL Sang Payer ID:[id number] (NAIC) Type:HMO Address: [address] [facility] Member Subscriber Plan / Payer (Ef fective 2020-) Name:Ray Abbie Sang Relation to Subscriber:Self Name:RAYABBIE Sang Payer ID:[id number] (NAIC) Type:HMO Address: [address] [facility] Member Subscriber Plan / Payer (Ef fective 2020-) Name:Abbie Bell Relation to Subscriber:Self Name:RYAABBIE Sang Payer ID:[id number] (NAIC) Type:HMO Address: [address] [facility] Member Subscriber Plan / Payer (Ef fective 2020-) Name:Ray Abbie Sang Relation to Subscriber:Self Name:RAYABBIE Sang Payer ID:[id number] (NAIC) Type:HMO Address: [address] [facility] Member Subscriber Plan / Payer (Ef fective 2020-) Name:Abbie Bell Relation to Subscriber:Self Name:RAYABBIE Sang Payer ID:[id number] (NAIC) Type:HMO Address: [address] [facility] Member Subscriber Plan / Payer (Ef fective 2020-Present) Name:Abbie Bell Relation to Subscriber:Self Name:ABBIE BELL Payer ID:[id number] (NAIC) Type:HMO Address: [address] [facility] Member Subscriber Plan / Payer (Ef fective 2020-Present) Name:Abbie Bell Relation to Subscriber:Self Name:ABBIE BELL Payer ID:[id number] (NAIC) Type:[employer] Address: [address] [facility] Member Subscriber Plan / Payer (Ef fective 2020-Present) Name:Ray Abbie Sang Relation to Subscriber:Self Name:ABBIE BELL Payer ID:[id number] (NAIC) Type:[employer] Address: [address] [facility] Advance Directives * Full Code (Latest Code Status on File) Date Activated Date Inactivated Comments 03/20/2021 4:15 AM 03/22/2021 5:37 PM
--- OUTSIDE RECORDS SUMMARY | 2025-03-31 11:16 | XMS_ITS | Referral Summary ---
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
--- OUTSIDE RECORDS SUMMARY | 2025-03-31 11:16 | XMS_ITS | Clinical Summary ---
Author Organization [facility] [address] [facility] Address [address] [place] [address] Care Team Providers Care Supervisor Hand Silvering Name Role Phone Anton Wright MD Primary Care Provider [phone] Allergies No known active allergies Encounters Date Type Department Care Team Description 03/10/2025 6:23 PM CDT - 03/10/2025 7:00 PM CDT Emergency 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
[2025-03-31 11:27] LABS: Hematocrit 43.8 % (42.0-52.0); Hemoglobin 14.2 g/dL (14.0-18.0); Immature Granulocyte Percent A 0.2 % (0-0.5); Lymphocytes Absolute Auto 2.75 K/mm3 (0.9-3.2); Mean Corpuscular HGB Conc 32.4 g/dl (32-36); Mean Corpuscular Hemoglobin 27.6 pg (26-34); Mean Corpuscular Volume 85.2 fl (80-100); Nucleated Red Blood Cells Absolute Auto 0.000 K/mm3 (0.0-0.012); Nucleated Red Blood Cells Perc 0.0 % (0.0-0.2); Platelet Count Result 317 k/mm3 (150-375); Red Blood Count 5.14 M/mm3 (4.6-6.20); White Blood Count 6.1 K/mm3 (4.5-10.0)
[2025-03-31] MEDS: ACETAMINOPHEN 500 MG TABLET 1000 MG PO (11:33)
[2025-03-31] MEDS: PROCHLORPERAZINE EDISYLATE 10 MG/2 ML VIAL IV PUSH (11:34)
[2025-03-31 11:39] LABS: Alanine Aminotransferase 40 U/L (6-50); Albumin Level 4.7 g/dL (3.5-5.1); Alkaline Phosphatase 60 U/L (38-126); Anion Gap 11 mmol/L (4-12); Aspartate Amino Transferase 32 U/L (17-59); Bilirubin,Total 0.6 mg/dL (0.2-1.3); Blood Urea Nitrogen 11 mg/dL (9-20); Calcium 9.6 mg/dL (8.4-10.2); Carbon Dioxide 24 mmol/L (22-30); Chloride 105 mmol/L (98-107); Estimated CRCL calculation 103 ml/min; Estimated Glomerular Filt Rate > 60; Glucose 82 mg/dL (65-110); Potassium 4.4 mmol/L (3.4-5.0); Sodium 140 mmol/L (137-145); Total Protein 8.6 g/dL (6.3-8.2)
[2025-03-31] MEDS: MAGNESIUM SULF 2 GM/WATER 50ML 2 GM/50 ML BAG IVPB (11:39)
[2025-03-31] MEDS: SODIUM CHLORIDE 0.9% IV 1,000 ML 999 ML IV CONT (11:46)
[2025-03-31 12:31] VITALS: BP 122/83; PULSE 59; RESP 16; O2SAT 100
[2025-03-31 13:02] VITALS: BP 138/86; PULSE 63; RESP 20; O2SAT 100
[2025-03-31 13:29] VITALS: BP 124/69; PULSE 65; RESP 20; O2SAT 98
== END 2025-03-31 13:31 | disposition home or self-care (01) ==
PROVIDERS: Emergency Provider Physician Assistant
DX: R51.9 Headache, unspecified (principal); M54.12 Radiculopathy, cervical region
CPT/HCPCS: 36415; 80053; 85025; 96365; 96366; 96375; 99284; A9270; J0780; J1200; J3475; J7030

== ENCOUNTER 2025-06-08 06:33 | Emergency (ER) | payer SELFPAY ==
--- NOTE | ~2025-06-08 | CT_ITS ---
EXAMINATION: CT abdomen pelvis wo con DATE: 06/08/2025 07:31 INDICATION: Gastrointestinal bleed. Lower back pain. TECHNIQUE: Computed tomography (CT) of the abdomen and pelvis was performed without intravenous contrast. Automated exposure control and iterative reconstruction technique were employed. The dose-length product was 520.04 mGy-cm. COMPARISON: None FINDINGS: Minimal dependent atelectasis in bilateral lower lobes. Heart size is normal. No pericardial or pleural effusion. Liver, gallbladder, spleen, pancreas, bilateral adrenal glands and kidneys are normal. Bladder is normal. Small calcified appendicoliths in the distal aspect of the otherwise normal appendix. Bowels are otherwise unremarkable with no evident wall thickening or obstruction. Trace amount of free fluid in the deep pelvis. No abscess or free intraperitoneal gas. No pathologically enlarged abdominal or pelvic lymphadenopathy. Mild lumbar dextrocurvature. L5 spondylolysis with chronic bilateral pars intra-articular is defects at 5 mm anterolisthesis on S1. There is moderate to severe disc right- sided prominent disc height loss at L4-L5 associated right-sided which Modic type III sclerotic degenerative endplate changes. Minimal to mild spondylosis the remainder of the lumbar and visualized lower thoracic spine. IMPRESSION: 1. No urolithiasis or acute intra-abdominal/pelvic process. 2. 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 Reviewed, dictated and finalized at location A. IMPRESSION: 1. No urolithiasis or acute intra-abdominal/pelvic process. 2. Mild lumbar dextrocurvature, L5 spondylolysis with grade 1 anterolisthesis o n S1 and severe spondylosis at L4-L5.
[2025-06-08 06:37] VITALS: BP 136/83; PULSE 73; RESP 16; TEMP 36.7; O2SAT 100
--- NOTE | 2025-06-08 07:12 | ED.BACK ---
HPI - Back Pain/Injury General Chief Complaint: Back Pain/Injury Stated Complaint: lower back pain, blood in stool Time Seen by Provider: 06/08/25 07:12 Source: patient Mode of arrival: ambulatory History of Present Illness HPI Narrative: 45 years old male came to the ED complaining of right lower quadrant and mid lower back pain started 3 days ago. History of chronic lower back pain, has been working at [employer] for the last 2 years which probably aggravated his lower back pain. Patient noticed blood in his stool this morning red color 1 time, no diarrhea or constipation or history of hemorrhoids patient is not on anti-platelet or anticoagulant medication, no abdominal pain. Lower back pain worse with certain movement and position, better laying still. Related Data Allergies Allergy/AdvReac Type Severity Reaction Status Date / Time No Known Allergies Allergy Verified 06/08/25 06:33 Review of Systems Review of Systems: All systems reviewed & are unremarkable except as noted in HPI and below PMFSH Past Medical History Medical History Right hand dominant Brain cyst Migraines Family History Family History Father No problems noted. Mother No problems noted. Sibling No problems noted. Social History Social History Living arrangements: alone Occupation/Education: occupation Additional occupation/education comments: employed Gender identity (if verbalized by the patient): Male Exam Narrative: General appearance: Well-developed, well-nourished Skin: Normal color Head: Normocephalic, nontraumatic Eyes: Clear conjunctiva ENT: Oropharynx normal, ears normal, nose normal Neck: Supple, nontender Chest and respiratory: Airway patent, no respiratory distress, no accessory muscle use Heart: Regular rate/rhythm Abdomen: Soft, nontender, no organomegaly, quiet bowel sounds, rectal exam guaiac negative yellowish brownish stool Vascular: Normal peripheral pulses, normal capillary refill. Musculoskeletal: mild diffuse tenderness right lower back, and lumbar area, no bruises, no swelling, no rash, slight limited range of motion at the trunk area Neurologic: Alert and oriented ?3, DRY FOLDER CLOTH is normal as tested, no gross motor deficit Course Vital Signs Vital signs: Vital Signs Temperature 36.7 C 06/08/25 06:37 Pulse Rate 73 06/08/25 06:37 Respiratory Rate 16 06/08/25 06:37 Blood Pressure 136/83 06/08/25 06:37 Pulse Oximetry 100 06/08/25 06:37 Oxygen Delivery Room Air 06/08/25 06:37 Temperature 36.7 C 06/08/25 07:45 Pulse Rate 64 06/08/25 07:45 Respiratory Rate 17 06/08/25 07:45 Blood Pressure 139/94 H 06/08/25 07:45 Pulse Oximetry 98 06/08/25 07:45 Oxygen Delivery Room Air 06/08/25 07:32 MDM - Back Pain/Injury MDM Narrative Medical decision making narrative: differential diagnosis include flare up of chronic lower back pain secondary to working at [employer], rectal exam is negative for blood, Blood workup today showed hemoglobin 13.3, hematocrit 41.6 coags within normal limit CT abdomen and pelvis with IV contrast showed mild lumbar dextrocurvature, 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 Discharged home on diclofenac, cyclobenzaprine and of work for the next 2 days Differential Diagnosis Differential diagnosis: Likely lumbar radiculopathy, sciatica, strain of lumbar region, renal colic and other Medical Records Attestation: I reviewed the patient's medical records. Lab Data Attestation: I reviewed the patient's lab results. 06/08/25 07:46 06/08/25 07:46 Labs: Lab Results 06/08/25 Range/Units 07:46 WBC 4.8 (4.5-10.0) K/mm3 RBC 4.87 (4.6-6.20) M/mm3 Hgb 13.3 L (14.0-18.0) g/dL Hct 41.6 L (42.0-52.0) % MCV 85.4 (80-100) fl MCH 27.3 (26-34) pg MCHC 32.0 (32-36) g/dl RDW 13.5 (11.5-14.5) % Plt Count 274 (150-375) k/mm3 MPV 10.4 (7.4-10.4) fl Immature Gran % (Auto) 0.2 (0-0.5) % Neut % (Auto) 39.8 L (45.5-73.1) % Lymph % (Auto) 41.9 (18.3-44.2) % [place] % (Auto) 12.4 H (2.6-8.5) % Eos % (Auto) 4.4 (0-4.4) % Baso % (Auto) 1.3 H (0.2-1.2) % Lymph # (Auto) 1.99 (0.9-3.2) K/mm3 [place] # (Auto) 0.6 (0.1-0.6) K/mm3 Eos # (Auto) 0.2 (0-0.3) K/mm3 Baso # (Auto) 0.1 (0.0-0.1) K/mm3 Abs Immat Gran (auto) 0.01 (0.00-0.031) K/mm3 Absolute Neuts (auto) 1.9 (1.3-6.7) K/mm3 Absolute Nucleated RBC 0.000 (0.0-0.012) K/mm3 Nucleated RBC % 0.0 (0.0-0.2) % PT Pending INR Pending APTT Pending Sodium 138 (137-145) mmol/L Potassium 4.0 (3.4-5.0) mmol/L Chloride 107 (98-107) mmol/L Carbon Dioxide 23 (22-30) mmol/L Anion Gap 8 (4-12) mmol/L BUN 11 (9-20) mg/dL Creatinine 0.90 (0.7-1.3) mg/dL Estim Creat Clear Calc 111 ml/min Estimated GFR > 60 (59 - ) Glucose 102 (65-110) mg/dL Calcium 9.1 (8.4-10.2) mg/dL Total Bilirubin 0.3 (0.2-1.3) mg/dL AST 31 (17-59) U/L ALT 40 (6-50) U/L Alkaline Phosphatase 71 (38-126) U/L Total Protein 7.6 (6.3-8.2) g/dL Albumin 4.2 (3.5-5.1) g/dL Imaging Data Radiologist's impression: Impressions Abdomen/Pelvis CT 06/08/25 07:35 IMPRESSION: 1. No urolithiasis or acute intra-abdominal/pelvic process. 2. 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 Critical Care Time Critical Care Time Critical Care Time: No Discharge Plan Discharge Clinical Impression: Lower back pain Patient Disposition: Home Condition: Stable Instructions: Acute Low Back Pain (ED) Additional Instructions: Return if symptoms are worsening , call your family physician for appointment, take Tylenol as as needed for aches and pain, continue home medications. Massage Heating bag Lower back exercise Patient Language: Tongan Prescriptions: New cyclobenzaprine 10 mg tablet 10 mg PO TID PRN (Reason: muscle spasm) Qty: 20 0RF diclofenac sodium 75 mg tablet,delayed release (DR/EC) 75 mg PO BID PRN (Reason: pain) Qty: 20 0RF pantoprazole [Protonix] 20 mg tablet,delayed release (DR/EC) 20 mg PO QAM 28 Days Qty: 28 0RF No Action acetaminophen 500 mg capsule 500 mg PO Q6H PRN (Reason: pain) Qty: 14 0RF cyclobenzaprine 10 mg tablet 10 mg PO TID PRN (Reason: muscle spasm) Qty: 14 0RF prednisone 20 mg tablet 40 mg PO DAILY Qty: 10 0RF ibuprofen 600 mg tablet 600 mg PO TID PRN (Reason: pain) Qty: 30 0RF acetaminophen 500 mg capsule 1,000 mg PO Q6H PRN (Reason: pain) Qty: 30 0RF Follow-up/Referrals: PHYSICIAN,ORACLE DATA WAREHOUSE DEVELOPER [Primary Care Provider, Internal Medicine] Gonzalo Rogel MD [Physician, Family Practice] - 06/11/25 Stand Alone Forms: Work/School Release IP
[2025-06-08 07:32] VITALS: BP 139/94; PULSE 67; RESP 17; TEMP 36.7; O2SAT 99
[2025-06-08 07:45] VITALS: BP 139/94; PULSE 64; RESP 17; TEMP 36.7; O2SAT 98
[2025-06-08 07:54] LABS: Hematocrit 41.6 % (42.0-52.0); Hemoglobin 13.3 g/dL (14.0-18.0); Immature Granulocyte Percent A 0.2 % (0-0.5); Lymphocytes Absolute Auto 1.99 K/mm3 (0.9-3.2); Mean Corpuscular HGB Conc 32.0 g/dl (32-36); Mean Corpuscular Hemoglobin 27.3 pg (26-34); Mean Corpuscular Volume 85.4 fl (80-100); Nucleated Red Blood Cells Absolute Auto 0.000 K/mm3 (0.0-0.012); Nucleated Red Blood Cells Perc 0.0 % (0.0-0.2); Platelet Count Result 274 k/mm3 (150-375); Red Blood Count 4.87 M/mm3 (4.6-6.20); White Blood Count 4.8 K/mm3 (4.5-10.0)
[2025-06-08 08:18] LABS: Alanine Aminotransferase 40 U/L (6-50); Albumin Level 4.2 g/dL (3.5-5.1); Alkaline Phosphatase 71 U/L (38-126); Anion Gap 8 mmol/L (4-12); Aspartate Amino Transferase 31 U/L (17-59); Bilirubin,Total 0.3 mg/dL (0.2-1.3); Blood Urea Nitrogen 11 mg/dL (9-20); Calcium 9.1 mg/dL (8.4-10.2); Carbon Dioxide 23 mmol/L (22-30); Chloride 107 mmol/L (98-107); Estimated CRCL calculation 111 ml/min; Estimated Glomerular Filt Rate > 60; Glucose 102 mg/dL (65-110); Potassium 4.0 mmol/L (3.4-5.0); Sodium 138 mmol/L (137-145); Total Protein 7.6 g/dL (6.3-8.2)
--- OUTSIDE RECORDS SUMMARY | 2025-06-08 08:18 | XMS_ITS | Clinical Summary ---
Author Organization 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 Gender Identity Not on file Sexual Orientation [...] Screening 2000 Regular Well Visit/Exam 18-64 2000 HPV Vaccines (1 - 3-dose SCDM series) 2009 Covid-19 Vaccine (3 - 2024- season) 2025 05/16/2021, 04/25/2021 Influenza Vaccine (#1) 2025 Pneumococcal vaccine <65 Aged Out No longer eligible based on patient's age to complete this topic Insurance [facility] CHOICE PLUS [facility] HMO/PPO Address: [facility] [address] [place] [address] Care Teams Inside Sales Assistant Relationship Specialty Start Date End Date Anton Wright MD PCP - General Family Practice 04/20/21
[2025-06-08 08:31] LABS: INR 1.0; Prothrombin Time 12.7 Seconds (11.1-14.7)
[2025-06-08 08:32] LABS: Partial Thromboplastin Time 34.8 Seconds (22.3-36.8)
[2025-06-08] MEDS: ACETAMINOPHEN 325 MG TABLET 650 MG PO (08:39)
[2025-06-08] MEDS: IBUPROFEN 600 MG TABLET PO (08:40)
[2025-06-08 08:44] VITALS: BP 128/94; PULSE 62; RESP 17; O2SAT 99
== END 2025-06-08 08:45 | disposition home or self-care (01) ==
PROVIDERS: Emergency Provider Emergency Medicine
DX: M54.50 Low back pain, unspecified (principal); G89.29 Other chronic pain; M47.816 Spondylosis without myelopathy or radiculopathy, lumbar region
CPT/HCPCS: 36415; 74176; 80053; 85025; 85610; 85730; 99284; A9270

== ENCOUNTER 2025-07-20 10:10 | Emergency (ER) | payer SELFPAY ==
--- NOTE | 2025-07-20 10:14 | ED.GENADULT ---
HPI - General Adult General Chief complaint: Urogenital-Male Stated complaint: UTI/Back Pain Time Seen by Provider: 07/20/25 10:33 Source: patient, RN notes reviewed and old records reviewed Mode of arrival: ambulatory Limitations: no limitations History of Present Illness HPI narrative: 45-year-old male presents to the [facility] with concerns for a UTI. Reports low back and low abdominal pain. Denies any frequency, urgency or burning. Denies nausea vomiting. Denies fevers. Denies concerns for STIs. Pain is not reproducible with palpation. Last bowel movement was yesterday he reports was normal. No treatment prior to arrival Onset (ago): day(s) (3-4) Treatments prior to arrival: none Related Data Allergies Allergy/AdvReac Type Severity Reaction Status Date / Time No Known Allergies Allergy Verified 07/20/25 10:25 Review of Systems Review of Systems: All systems reviewed & are unremarkable except as noted in HPI and below Constitutional: Constitutional: Reports no additional constitutional complaints Cardiovascular: Cardiovascular: Reports no additional cardiovascular complaints, Denies chest pain and Denies dyspnea Respiratory: Respiratory: Reports no additional respiratory complaints, Denies chest congestion, Denies cough and Denies dyspnea Gastrointestinal: Gastrointestinal: Reports as per HPI Genitourinary: Genitourinary: Reports no additional male genitourinary complaints, Denies dysuria, Denies flank pain, Denies testicular pain, Denies urinary frequency and Denies urinary urgency Musculoskeletal: Musculoskeletal: Reports as per HPI Integumentary/Breasts: Skin/Breast: Reports system reviewed and no additional complaints, except as docu PMFSH Past Medical History Medical History Right hand dominant Brain cyst Migraines Family History Family History Father No problems noted. Mother No problems noted. Sibling No problems noted. Social History Social History Living arrangements: alone Occupation/Education: occupation Additional occupation/education comments: employed Gender identity (if verbalized by the patient): Male Comments At the time of my signature, I reviewed and agree with the nursing past medical, surgical, social, and family history. There is no relevant family history pertinent to the patient complaint. Exam Const: General: cooperative, healthy appearing, comfortable, no acute distress, well developed, alert and well nourished Nutritional Appearance: well nourished Orientation/consciousness: patient oriented x3 Limitations: no limitations HENMT: Head: normal to inspection Face/Nose/Sinus: Normal external nose present and No ecchymosis Face and sinus: normal facial exam and face symmetric Mouth: Yes Normal oral and palatal mucosa present, Yes lip normal, Yes tongue normal and Yes moist mucous membranes Eyes: General: appearance normal, both eyes and all related structures Alignment and Position: alignment normal Neck: Neck: normal visual inspection, full ROM, no lymphadenopathy and no meningeal signs Chest: Chest palpation & inspection: normal inspection of the chest Resp: Effort & Inspection: normal respiratory effort and able to speak in complete sentences Auscultation: clear to auscultation bilaterally, no crackles, no rales, no rhonchi and no wheezes Cardio: Rate: regular rate GI: GI Palp: No abdominal tenderness, Yes Soft to palpation, No Firmness to palpation present (GI) and No Tenderness to palpation present (GI) Auscultation: normal bowel sounds : General: Yes no CVA tenderness Back/Spine/Pelvis: Back: no CVA tenderness Skin: General skin exam: normal color and no rashes or lesions noted Neuro: General: patient oriented x3, gait normal, moves all extremities and no meningeal signs Cognition (Neuro): normal cognition Speech: normal speech Gait exam (Neuro): Normal gait present Extrem: General: normal to inspection, full ROM, capillary refill normal and normal gait Psych: Appearance: grossly normal and well kempt Mental Status: mental status grossly normal Speech and movement: Normal speech and movement present and Clear speech present Affect: normal affect Attitude: cooperative Course Course Level of Care: Express Care Visit Vital Signs Vital signs: Vital Signs Temperature 98.4 F 07/20/25 10:18 Pulse Rate 70 07/20/25 10:18 Respiratory Rate 16 07/20/25 10:18 Blood Pressure 133/82 07/20/25 10:18 Pulse Oximetry 100 07/20/25 10:18 Oxygen Delivery Room Air 07/20/25 10:18 Temperature 98.4 F 07/20/25 10:18 Pulse Rate 70 07/20/25 10:18 Respiratory Rate 16 07/20/25 10:18 Blood Pressure 133/82 10/28/25 10:18 Pulse Oximetry 100 07/20/25 10:18 Oxygen Delivery Room Air 07/20/25 10:18 Reviewed Medical Decision Making MDM Narrative Medical decision making narrative: Patient sitting comfortably in exam room. Patient is nontoxic, vitals are stable. Patient presents with concerns for UTI. Urine dip shows no signs of a UTI. Culture is not indicated. Patient's only concern was low back and low abdominal discomfort, unable to reproduce with palpation. Discussed in detail signs and symptoms of the abdominal pain or back pain return to proceed to the emergency room which he verbalized understanding. Discharge instructions reviewed with patient, as well as provided in writing per nursing staff. The instructions also include specific and strict return/GO TO THE ER as well as f/u information. All questions have been answered, and the patient deny any further questions with discharge and discharge plan. Some parts of this dictation were generated by voice recognition software and may contain typographical and/or grammatical inaccuracies. Differential Diagnosis Differential Diagnosis: UTI, enlarged prostate acute abdomen, acute on chronic back pain. Medical Records Medical records reviewed: Yes I reviewed the external patient's medical records. Vital Signs Vital Signs: Vital Signs Temperature 98.4 F 07/20/25 10:18 Pulse Rate 70 07/20/25 10:18 Respiratory Rate 16 07/20/25 10:18 Blood Pressure 133/82 07/20/25 10:18 Pulse Oximetry 100 07/20/25 10:18 Oxygen Delivery Room Air 07/20/25 10:18 Temperature 98.4 F 07/20/25 10:18 Pulse Rate 70 07/20/25 10:18 Respiratory Rate 16 07/20/25 10:18 Blood Pressure 133/82 07/20/25 10:18 Pulse Oximetry 100 07/20/25 10:18 Oxygen Delivery Room Air 07/20/25 10:18 Reviewed Lab Data Lab results reviewed: Yes I reviewed the patient's lab results. Labs: Lab Results 07/20/25 Range/Units 10:33 POC Urine Color Yellow POC Urine Clarity Clear POC Urine pH 5.5 POC Ur Specif [place] 1.020 POC Urine Protein Negative (Negative) POC Ur Glucose (UA) Negative (Negative) POC Urine Ketones Negative (Negative) POC Urine Blood Negative (Negative) POC Urine Nitrite Negative (Negative) POC Urine Bilirubin Negative (Negative) POC Urine Urobilinogen 0.2 POC U Leukocyte Esteras Negative (Negative) Reviewed Critical Care Time Critical Care Time Critical Care Time: No Discharge Plan Discharge Clinical Impression: Abdominal pain, Acute on chronic back pain Patient Disposition: Home Condition: Stable Instructions: Antibiotic Form, Abdominal Pain (ED) Additional Instructions: Today your urine did not show signs of a urinary tract infection. If your abdominal pain returns or gets worse please go directly to the emergency room 0 weeks follow-up with primary care provider Patient Language: [place]ian Prescriptions: No Action ibuprofen 600 mg tablet 600 mg PO TID PRN (Reason: pain) Qty: 30 0RF acetaminophen 500 mg capsule 1,000 mg PO Q6H PRN (Reason: pain) Qty: 30 0RF cyclobenzaprine 10 mg tablet 10 mg PO TID PRN (Reason: muscle spasm) Qty: 20 0RF diclofenac sodium 75 mg tablet,delayed release (DR/EC) 75 mg PO BID PRN (Reason: pain) Qty: 20 0RF Follow-up/Referrals: PHYSICIAN,OPTICAL LABORATORY MECHANIC [Primary Care Provider, Internal Medicine] Gonzalo Rogel MD [Physician, Family Practice] - 1 Week Time of Disposition: 10:41
[2025-07-20 10:18] VITALS: BP 133/82; PULSE 70; RESP 16; TEMP 36.9; O2SAT 100
[2025-07-20 10:35] LABS: EDUAAPPEAR Clear; EDUABILI Negative (Negative); EDUABLOOD Negative (Negative); EDUACOLOR1 Yellow; EDUAGLUCOSE Negative (Negative); EDUAKETONE Negative (Negative); EDUALEUKO Negative (Negative); EDUANITRATE Negative (Negative); EDUAPH 5.5; EDUAPROTEIN Negative (Negative); EDUASPGRAVITY 1.020; EDUAUROBILI 0.2
== END 2025-07-20 10:45 | disposition home or self-care (01) ==
PROVIDERS: Emergency Provider Nurse Practitioner
DX: R10.30 Lower abdominal pain, unspecified (principal); M54.50 Low back pain, unspecified; G89.29 Other chronic pain
CPT/HCPCS: 81003; 99212; G0463